=== PATIENT | female | born 1980 | race Caucasian/White ===

== ENCOUNTER 2021-12-25 20:00 | Outpatient (CLI) | payer OTHER, SELFPAY ==
--- OUTSIDE RECORDS SUMMARY | 2022-01-07 13:28 | XMS_ITS | Encounter Summary ---
:1980 Author Reason for Visit None recorded. Assessment and Plan Assessment Note 1. Biopsy-proven basal carcinoma right upper mucosal and cutaneous lip violating the vermilion border. See photographs. Verbally and with written informed cons ent we discussed the high risk of swelling bleeding and bruising. Pain discomfort, overall 98% potential long-term efficacy and scarring. The potential need for a wedge resection pending the size was ev en discussed preoperatively. Area cleansed with alcohol. Vermilion b order marked. Anesthetized with nerve block. 1% lidocaine with epinephrine however throughout the day Marcaine was used to maintain the anesthesia. Stage I: Curette debulking performed 1 to 1/2 mm margins were taken down to the muscularis revealing residual micronodular basal cell carcinoma and around the entire periphery. New paragraph we discuss ed this with the patient has been a more high risk basal cell. And the potential need for further layers over the day than expected. Stage II: Curette debulking performed 1 mm margins to 1-1/2 taken again. This revealed scattered smaller less de nse less populated micronodular islands from 10:00 skipping most of 6 7 and 8:00, and beginning at about 6:00 to 2:00. Stage III: Peripheral rim taken from 11 :00 to 1:00 through 6:00 with 1 to 2 mm margins revealing no residual basal carcinoma. Total stages 3, total sections 3 final defect 2.0 x 1.1 cm. Bilateral advancement flap and the form ation of a wedge resection was performed. Advanced medially with tapering on the medial inner aspect of the mucosal lip to contour appropriate taper. Vermilion libertad rders have been premarked and aligned wi th a mattress suture. Otherwise simple nylon sutures were used. The flap was 3 x 2 cm for total of 6 cm ? on the mucosal lip. Ice given, pressure dressing applied ty pewritten verbal wound care instructions given. Cell phone number given. Follow-up in 1 week in [place]. 1. Basal cell carcinoma of upper lip Discussion Note: None recorded.Patient educational handouts: No information available. Plan of Care Reminders Provider Appointments None recorded. ? ? Lab None recorded. ? ? Referral None recorded. ? ? Procedures None recorded. ? ? Surgeries None recorded. ? ? Imaging None recorded. ? ? Medications Name Start Date ? ? amoxicillin 875 mg-potassium clavulanate 125 mg tablet ? TAKE 1 TABLET BY MOUTH TWICE A DAY FOR 10 DAYS FOR SI NUS INFECTION atorvastatin 10 mg tablet ? TAKE 1 TABLET BY MOUTH DAILY AT BEDTIME ketorolac 10 mg tablet ? TAKE 1 TABLET BY MOUTH THREE TIMES A DAY NEEDED sertraline 100 mg tablet ? TAKE 1 TABLET BY MOUTH EVERY DAY Medications Administered None recorded. Vitals None recorded. Results Lab Results None recorded. Allergies None recorded. Problems None recorded. Procedures None recorded. Vaccine List None recorded. Social History None recorded. Functional Status Unknown. Past Encounters 11/16/2021 Basal Cell Carcinoma of Upper Lip Vj Harris MD: [address] [facility] [address], [facility] [[email or web address]] [address], [place] [address], Ph. History of Present Illness Note: <span>41 year-old female presents for the basal cell on her right upper cutaneous lip accompanied by her . He presents for the preoperative consultation and the informed consent. But doesnot present for most of the procedure..

known to me from [place].

No changes in her history.</span> Review of Systems ? Notes: <span>Review systems: patien t feels overall excellent health, weight stable, no issues with bleeding, jessie tting or healing. </span> Physical Exam ? Notes: <span>See photographs a 5 to 6 mm indurated poorly defined in some aspects macular plaque that crosses vermilion border on the right upper lateral cutaneous lip.</span>
--- OUTSIDE RECORDS SUMMARY | 2022-01-07 13:28 | XMS_ITS ---
:1980 Author Care Team Providers Name Role Phone Vj Harris Primary Care Provider Unavailable Allergies None recorded. Medications Name Status Start Date Stop Date ? ? amoxicillin 875 mg-potassium clavulanate 125 mg tablet Active ? Not available TAKE 1 TABLET BY MOUTH TWICE A DAY FOR 10 DAYS FOR SINUS INFECT ION atorvastatin 10 mg tablet Active ? Not av ailable ketorolac 10 mg tablet Active ? Not avail able TAKE 1 TABLET BY MOUTH THREE TIMES A DAY NEEDED sertraline 100 mg tablet Active ? Not christina ilable Problems None recorded. Procedures None recorded. Results Lab Results None recorded. Past Encounters 11/16/2021 Basal Cell Carcinoma of Upper Lip Vj Harris MD: [address], [facility] [address], [place] [address], Ph. Social History None recorded. Vaccine List None recorded. Plan of Care Reminders Provider Appointments None recorded. ? ? Lab None recorded. ? ? Referral None recorded. ? ? Procedures None recorded. ? ? Surgeries None recorded. ? ? Imaging None recorded. ? ? Vitals None recorded.
--- NOTE | 2022-01-12 13:14 | W.PM.SLEEP ---
Sleep Study Details Details Interpreting Provider: Luis Jc MD Date of Sleep Study: 12/31/21 Sleep Study Details: STUDY TYPE:? Home ? BMI:? 33 ORDERING PROVIDER:? Francisco INDICATION:? Concerns about sleep apnea ? SLEEP SUMMARY:? 425.6 monitored minutes RESPIRATORY SUMMARY:? AHI is 2.3 Low oxygen 88 Snoring 13.9% PERIODIC LIMB MOVEMENTS OF SLEEP:? Not recorded CARDIAC:? 54-99, mean 71.6 IMPRESSION:? This sleep study does not demonstrate clinically significant obstructive sleep apnea. Primary snoring is observed. If sleep disorder is strongly suspected then an in-lab sleep study followed by possibly an MSLT is recommended RECOMMENDATION: See above
--- OUTSIDE RECORDS SUMMARY | 2022-01-17 15:17 | XMS_ITS | Encounter Summary ---
[...] number given. Follow-up in 1 week in [place]. 1. Basal cell carcinoma of upper lip [...] Vj Harris MD: [address], [facility] [address], [place] [address], Ph. History of Present Illness Note: <span>41 year-old female presents for the basal cell on her right upper cutaneous lip accompanied by her . He presents for the preoperative consultation and the informed consent. But doesnot present for most of the procedure..

known to me from [place].

No changes in her history.</span> Review of [...]
--- OUTSIDE RECORDS SUMMARY | 2022-01-17 15:17 | XMS_ITS | Clinical Summary ---
:1980 Author Organization [facility] [place] [address] Care Team Providers Name Role Phone Sarai Macias Primary Care Provider Unavailable Allergies No known active allergies Medications Medication Sig Dispensed Refills Start Date End Date Status atorvastatin (LIPITOR) Take 10 mg by 0 11/30/2019 Active 10 mg tablet mouth at bedtime. sertraline (ZOLOFT) Take 100 mg by 0 01/28/2020 Active 100 mg tablet mouth once daily. valACYclovir (VALTREX) TAKE 2 TABLETS BY 0 0 Active 1 gram tablet MOUTH TWICE DAILY FOR 2 DAYS NEEDED Cetirizine (ZYRTEC) 10 Take by mouth. 0 Active mg cap amoxicillin (AMOXIL) Take 1 capsule by 30 capsule 0 02/22/2020 Active 500 mg mouth 3 times capsuleIndications: daily. Right otitis media, unspecified otitis media type Active Problems Not on file Social History Tobacco Use Types Packs/Day Years Used Date Never Smoker Smokeless Tobacco: Never Used Alcohol Use Standard Drinks/Week Comments Never 0 (1 standard drink = 0.6 oz pure alcoho l) Alcohol Habits Answer Date Recorded How often do you have a drink containing alcohol? Never 02/22/2020 How many drinks containing alcohol do you have on a typical Not asked day when you are drinking? How often do you have six or more drinks on one occasion? No t asked Comment: Not asked Sex Assigned at Date Recorded Not on file Obstetrics History Last Filed Vital Signs Vital Sign Reading Time Taken Comments Blood Pressure 126/87 07/23/2021 8:05 PM CDT Pulse 78 07/23/2021 8:05 PM CDT Temperature 36.6 ??C (97.9 ??F) 07/23/2021 4:03 PM CDT Respiratory Rate 18 07/23/2021 8:05 PM CDT Oxygen Saturation 98% 07/23/2021 8:05 PM CDT Inhaled Oxygen Concentration - - Weight 81.6 kg (180 lb) 07/23/2021 5:52 PM CDT Height 170.2 cm (5' 7) 07/23/2021 5:52 PM CDT Body Mass Index 28.19 07/23/2021 5:52 PM CDT Plan of Treatment Health Maintenance Due Date Last Done Comments Tdap 1992 Depression screening for age 12+ 1993 BMI (ht and wt on same day) for 07/06/1999 age 18+ Hepatitis C screening for age 0507/06/1999 18-79 Tetanus booster 2001 COVID-19 vaccine series (2 - 05/29/2020 05/01/2020 Moderna series) Pap test for age 21-65 03/08/2021 03/08/2018, 03/08/2018, 10/24/2013, Additional history exists Influenza for age 9-49 10/29/2021 Results Not on filefrom Last 3 Months Insurance Payer Benefit Plan / Subscriber ID Effective Dates Phone Addre ss Type Group [employer] [id number] 2017-[place] [address] [place] [address] [facility] [id number] 2017-[place] [address] [place] [address] Katey Orozco Personal/Famil Self [phone] (Home) [place] [phone] Sravani BARRON (Work) [id number] Care Teams Ui Developer Relationship Specialty Start Date End Date Sarai Macias PCP - General Obstetrics and Gynecology 05/22/12
--- OUTSIDE RECORDS SUMMARY | 2022-01-17 15:17 | XMS_ITS ---
[...] of Upper Lip Vj Harris MD: [address], [facility] [address], [place] [address], Ph. Social History None recorded. Vaccine List None recorded. Plan of Care Reminders Provider Appointments None recorded. ? ? Lab None recorded. ? ? Referral None recorded. ? ? Procedures None recorded. ? ? Surgeries None recorded. ? ? Imaging None recorded. ? ? Vitals None recorded.
== END 2021-12-25 20:01 | disposition home or self-care (01) ==
LOC: SLEEP 01-17 15:16
PROVIDERS: PCP Physician Assistant Medical; Visit Provider Otolaryngology
DX: R06.83 Snoring (principal); G47.19 Other hypersomnia
CPT/HCPCS: 95806

== ENCOUNTER 2022-04-07 07:34 | Outpatient (CLI) | payer OTHER, SELFPAY ==
--- NOTE | 2022-04-07 07:45 | CRLHL7_ITS ---
For Patients: As a result of the Century Cures Act, medical imaging exams and procedure reports are released immediately into your electronic medical record. You may view this report before your referring provider. If you have questions, please contact your health care provider. DIGITAL DIAGNOSTIC BILATERAL MAMMOGRAM USING TOMOSYNTHESIS AND COMPUTER-AIDED DETECTION RIGHT AXILLARY ULTRASOUND CLINICAL HISTORY: RIGHT axillary lump. COMPARISON: None. TECHNIQUE: Digital BILATERAL mammogram in six projections. Tomosynthesis and CAD utilized. Real-time ultrasound imaging of RIGHT axilla with imaging documentation. BREAST COMPOSITION: There are areas of scattered fibroglandular density. FINDINGS: 3D CC/MLO RIGHT breast mammogram images submitted. 2D CC/MLO BILATERAL mammograms submitted. Normal fibroglandular tissue is present bilaterally. No suspicious masses or architectural distortion. No adenopathy. Targeted RIGHT axillary ultrasound demonstrates a normal lymph node with central fatty hilum and thin hypoechoic cortex. No suspicious findings. IMPRESSION: Normal BILATERAL mammograms and normal RIGHT axillary lymph node. No findings concerning for malignancy. RECOMMENDATIONS: Annual BILATERAL screening mammography. Results and recommendations were discussed with the patient at the time of the exam. BI-RADS Category 2: Benign A lay language report of this examination will be provided to the patient. Dictated by Miles Carreon MD @ 04/07/2022 12:03:18 PM jj/Dictated by: Miles Carreon MD @ 04/07/2022 12:03:00 PM (Electronically Signed)
--- NOTE | 2022-04-07 08:15 | CRLHL7_ITS ---
For Patients: As a result of the Century Cures Act, medical imaging exams and procedure reports are released immediately into your electronic medical record. You may view this report before your referring provider. If you have questions, please contact your health care provider. INDICATION: Left ovarian cyst COMPARISON: 03/20/2018 TECHNIQUE: 2D cazares scale and color Doppler images were acquired of the pelvis using a transabdominal and transvaginal approach. FINDINGS: There is now a right sided intramural uterine fibroid measuring 3.4 x 2.3 x 3.1 cm. This may extend to the endometrial lining. Uterus measures 9.8 cm in length by 5.5 cm in AP diameter by 6.6 cm in transverse dimension. The endometrial lining appears normal and measures 5 mm in composite thickness. The right ovary measures 3.1 x 1.4 x 1.9 cm in size and the left ovary measures 3.9 x 1.8 x 3.5 cm. The ovaries demonstrate normal arterial and venous blood flow on color Doppler analysis. Hypoechoic left ovarian cyst is present measuring 2.3 x 2.1 x 2.6 cm. Trace physiologic free fluid. IMPRESSION: Right-sided uterine fibroid measuring 3.4 cm possibly extend into the endometrial lining. Hypoechoic left ovarian cyst measuring 2.6 cm. Dictated by Miles Carreon MD @ 04/07/2022 12:56:14 PM (Electronically Signed)
--- NOTE | 2022-04-07 09:15 | CRLHL7_ITS ---
For Patients: As a result of the Cures Act, medical imaging exams and procedure reports are released immediately into your electronic medical record. You may view this report before your referring provider. If you have questions, please contact your health care provider. PLEASE SEE DIGITAL DIAGNOSTIC BILATERAL MAMMOGRAM PERFORMED SAME DAY CRL:donna thompson/Dictated by: Miles Carreon MD @ 04/07/2022 12:03:00 PM (Electronically Signed)
== END 2022-04-07 07:35 | disposition home or self-care (01) ==
LOC: MAMMO 07:34
PROVIDERS: PCP Physician Assistant Medical; Visit Provider Physician Assistant Medical
DX: N83.202 Unspecified ovarian cyst, left side; D25.9 Leiomyoma of uterus, unspecified; R22.31 Localized swelling, mass and lump, right upper limb
CPT/HCPCS: 76830; 76856; 76882; 77066; G0279

== ENCOUNTER 2022-05-28 08:25 | Outpatient (CLI) | payer OTHER, SELFPAY | END 2022-05-28 08:26 | disposition home or self-care (01) | LOC: NFLDREF 13:31 | PROVIDERS: PCP Physician Assistant Medical; Referring Provider Physician Assistant Medical; Visit Provider Physician Assistant Medical | DX: N92.0 Excessive and frequent menstruation with regular cycle (principal); D25.0 Submucous leiomyoma of uterus; Z13.6 Encounter for screening for cardiovascular disorders | CPT/HCPCS: 80053; 80061; 84443 ==

== ENCOUNTER 2022-05-28 15:49 | Outpatient (CLI) | payer OTHER, SELFPAY ==
--- NOTE | 2022-05-28 15:00 | CRLHL7_ITS ---
For Patients: As a result of the Century Cures Act, medical imaging exams and procedure reports are released immediately into your electronic medical record. You may view this report before your referring provider. If you have questions, please contact your health care provider. CLINICAL HISTORY: FOLLOW UP LEFT OVARIAN CYST Comparison 04/07/2022 TECHNIQUE: 2D cazares scale ultrasound. In addition color Doppler and spectral Doppler analysis was performed of the pelvis using a transabdominal and transvaginal approach. FINDINGS: Right-sided fibroid within the uterine fundus extending to the endometrial stripe measures 3.2 x 2.1 x 2.4 cm. The endometrial lining measures 7 mm in thickness. The right ovary measures 3.4 x 1.5 x 2.1 cm in size and the left ovary measures 3.1 x 1.4 x 1.3 cm. The ovaries demonstrate normal arterial and venous blood flow on color Doppler and spectral Doppler analysis. Interval resolution of the previously noted hemorrhagic left ovarian cyst. A small hemorrhagic right ovarian cyst is present measuring 2.2 x 1.2 x 1.8 cm. There are no suspicious fluid collections within the cul-de-sac. IMPRESSION: Interval clearing of the previously noted hemorrhagic left ovarian cyst compared to the prior study. Similar appearance of the right-sided uterine fibroid extending to the endometrial stripe measuring 3.2 cm. Dictated by Miles Carreon MD @ 05/31/2022 9:03:43 AM (Electronically Signed)
== END 2022-05-28 15:50 | disposition home or self-care (01) ==
LOC: US 15:50
PROVIDERS: PCP Physician Assistant Medical; Visit Provider Obstetrics & Gynecology
DX: N83.202 Unspecified ovarian cyst, left side (principal); D25.9 Leiomyoma of uterus, unspecified
CPT/HCPCS: 76830; 93976

== ENCOUNTER 2022-06-10 15:27 | Emergency (ER) | payer OTHER, SELFPAY ==
[2022-06-10 15:33] VITALS: BP 130/94; PULSE 95; RESP 18; TEMP 36.8; O2SAT 95; BMI 33.3
[2022-06-10 16:51] VITALS: BP 122/82; PULSE 80; RESP 20; TEMP 36.6; O2SAT 98
--- NOTE | 2022-06-10 17:10 | ED.GENADULT ---
HPI - General Adult General Date Seen: 06/10/22 Chief complaint: Allergic Reaction Stated complaint: Gave self epipen ~1 hour ago Time Seen by Provider: 06/10/22 16:44 History of Present Illness HPI narrative: Patient is a 41-year-old female who was diagnosed yesterday with a tree nut allergy. Today she was eating some jelly beans and started to notice some itching in her throat and a feeling of tightness. No lip or tongue swelling. No wheezing. This was a similar feeling that she got in the die grinder's office yesterday when eating almond butter. She is given two doses of epinephrine yesterday as well as a dose of Benadryl. When today's episode began she took a dose of Benadryl and when her symptoms did not improve she took a dose of epinephrine. She presents about 1 hour later. Related Data Home Medications Medication Instructions Recorded Confirmed cetirizine 10 mg capsule (Zyrtec) 10 mg PO QDAY PRN 10/13/21 06/02/22 [place]-3 PO 04/05/22 06/02/22 epinephrine 0.3 mg/0.3 mL 0.3 mg IM ONCE 04/15/22 06/02/22 injection, auto-injector Previous Rx's Medication Instructions Recorded atorvastatin 10 mg tablet 10 mg PO QHS #90 tabs 04/05/22 sertraline 100 mg tablet 100 mg PO QDAY #90 tabs 04/05/22 tranexamic acid 650 mg tablet 650 mg PO TID excessive menstrual 06/02/22 bleeding #9 tabs epinephrine 0.3 mg/0.3 mL 0.3 mg (0.3 mL) IM Q5-15M PRN #2 ea 06/10/22 injection, auto-injector (EpiPen 2-Doug) Allergies Allergy/AdvReac Type Severity Reaction Status Date / Time house dust Allergy Verified 06/10/22 15:37 lactose AdvReac Intermediate Verified 06/10/22 15:37 Molds & Smuts Allergy Mild Congested Uncoded 06/02/22 14:51 nuts AdvReac Uncoded 06/02/22 14:51 Review of Systems Narrative: Review of systems is outlined above otherwise noted to be negative. She has been undergoing the evaluation for tree nut allergy for about the past two months. [facility] Medical History (Updated 06/10/22 @ 17:09 by Miles Patterson MD) Basal cell carcinoma (~10/2021) ?C44.91 - Basal cell carcinoma of skin, unspecified (ICD-10) Benign paroxysmal positional vertigo ?H81.10 - Benign paroxysmal vertigo, unspecified ear (ICD-10) History of bulimia ?Z86.59 - Personal history of other mental and behavioral disorders (ICD-10) Lump of skin of upper extremity ?R22.30 - Localized swelling, mass and lump, unspecified upper limb (ICD-10) Surgical History (Updated 04/13/22 @ 09:47 by Lyric Patel MD) History of arthroscopic knee surgery (12/11/08) ?Z98.890 - Other specified postprocedural states (ICD-10) History of section (10/24/12) ?Z98.891 - History of uterine scar from previous surgery (ICD-10) History of section (06/17/09) ?Z98.891 - History of uterine scar from previous surgery (ICD-10) History of endometrial ablation (05/02/18) ?Z98.890 - Other specified postprocedural states (ICD-10) History of hysteroscopy (01/08/15) ?Z98.890 - Other specified postprocedural states (ICD-10) History of hysteroscopy (09/20/11) ?Z98.890 - Other specified postprocedural states (ICD-10) History of sinus surgery (12/11/08) ?Z98.890 - Other specified postprocedural states (ICD-10) Hx of nasal septoplasty (09/07/19) ?Z98.890 - Other specified postprocedural states (ICD-10) Family History (Updated 04/13/22 @ 11:28 by Lyric Patel MD) Father Alcoholism Heart disease Hyperlipidemia Colon cancer High blood pressure Maternal Grandmother Cervical cancer Mother High blood pressure Paternal Grandmother Ovarian cancer Social History (Updated 04/13/22 @ 11:29 by Lyric Patel MD) 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 , 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 nonsmoker Highest level of school completed/degree received: Master's degree Smoking Status: Never smoker How often do you have a drink containing alcohol: never AUDIT-C Alcohol total score: 0 Non-prescribed substance use: denies use Are you now , , , , never or living with a partner: Social isolation score (0-1 are the most socially isolated patients): 1 Little interest or pleasure in doing things: not at all Feeling down, depressed, or hopeless: several days Do you think of yourself as: straight/heterosexual Gender Identity: female Are you currently sexually active: Yes In the past 12 months, how many sex partners have you had: one Are you using contraception or practicing any form of control: Yes (Partner vasectomy) Exam Narrative: Exam Narrative: Vitals noted. No audible wheezing. HEENT: Conjunctiva clear. Tympanic membranes are pearly white bilaterally. Posterior pharynx is clear without erythema or exudate. No lip or tongue swelling. Neck is supple without adenopathy. Lungs: Clear to auscultation in all kenny. No wheezes, rales, rhonchi. Good air movement. Heart: Regular rate and rhythm without murmur. Abdomen: Soft and nontender. No guarding, rigidity, rebound. Bowel sounds are normal. No palpable masses. Extremities: No cyanosis or edema. Good distal pulses. Skin: No abnormalities noted of the exposed skin. No hives. Neurologic: Awake, alert, fully oriented. Neurologic exam is nonfocal. Const: Vital Signs, click to edit/add: Vital Signs - 24 hr 06/10/22 15:33 06/10/22 16:51 Temperature 98.2 F 97.8 F Pulse Rate [Right Pulse Oximeter] 95 80 Respiratory Rate 18 20 Blood Pressure [Ri ght Upper Arm] 130/94 H 122/82 Pulse Oximetry 95 98 Oxygen Delivery Me thod Room Air Room Air Course Course Hospital Course: Patient was seen and examined. She is currently asymptomatic. No diagnostic evaluation is necessary. She will discharge home. Her is present. She can take another dose of Benadryl at bedtime and I have refilled her epinephrine as needed. Vital Signs Vital signs: Initial Vital Signs Respiratory Effort Normal 06/10/22 15:27 Respiratory Depth Normal 06/10/22 15:27 Respiratory Pattern Normal 06/10/22 15:27 Vital Signs Temperature 98.2 F 06/10/22 15:33 Pulse Rate 95 06/10/22 15:33 Respiratory Rate 18 06/10/22 15:33 Blood Pressure 130/94 H 06/10/22 15:33 Pulse Oximetry 95 06/10/22 15:33 Oxygen Delivery Method Room Air 06/10/22 15:33 Temperature 97.8 F 06/10/22 16:51 Pulse Rate 80 06/10/22 16:51 Respiratory Rate 20 06/10/22 16:51 Blood Pressure 122/82 06/10/22 16:51 Pulse Oximetry 98 06/10/22 16:51 Oxygen Delivery Method Room Air 06/10/22 16:51 Discharge Plan Discharge Clinical Impression: Allergic reaction to tree nut Patient Disposition: Home, Self-Care Condition: Stable Instructions: Food Allergy (ED) Additional Instructions: Take 50 mg of thumb Benadryl before bed. Continue Zyrtec 10 mg daily. I have refilled your EpiPen. If you have recurrent symptoms please fill the prescription for prednisone. Activity Level: No Restrictions Discharge Diet: Regular Prescriptions: New epinephrine [EpiPen 2-Doug] 0.3 mg/0.3 mL auto-injector 0.3 mg IM Q5-15M PRNQty: 2 5RF Rx Instructions: do not exceed 3 doses per episode No Action tranexamic acid 650 mg tablet 650 mg PO TID Qty: 9 0RF Zyrtec 10 mg capsule 10 mg PO QDAY PRN [place]-3 PO sertraline 100 mg tablet 100 mg PO QDAY Qty: 90 3RF atorvastatin 10 mg tablet 10 mg PO QHS Qty: 90 3RF epinephrine 0.3 mg/0.3 mL auto-injector 0.3 mg IM ONCE Rx Instructions: as a single dose; may repeat once Follow Up/Referrals: Imelda Tripp PA-C [Primary Care Provider] - Stand Alone Forms: MyHealth Info Instructions
== END 2022-06-10 17:20 | disposition home or self-care (01) ==
LOC: ED 17:15
PROVIDERS: Emergency Provider Family Medicine; PCP Physician Assistant Medical
DX: T78.05XA Anaphylactic reaction due to tree nuts and seeds, initial encounter (principal)
CPT/HCPCS: 99282; 99283

== ENCOUNTER 2022-06-30 17:17 | Outpatient (CLI) | payer OTHER, SELFPAY | END 2022-06-30 17:18 | disposition home or self-care (01) | PROVIDERS: PCP Physician Assistant Medical; Visit Provider Physician Assistant Medical | DX: Z01.818 Encounter for other preprocedural examination (principal); R79.89 Other specified abnormal findings of blood chemistry | CPT/HCPCS: 80076; 86703; 86803 ==

== ENCOUNTER 2023-06-20 13:01 | Outpatient (CLI) | payer OTHER, SELFPAY ==
[2023-06-20 23:30] LABS: Chlamydia DNA Amplified* NOT DETECTED (No Detected); GC DNA Amplified* NOT DETECTED (No Detected)
== END 2023-06-20 13:02 | disposition home or self-care (01) ==
PROVIDERS: PCP Physician Assistant Medical; Visit Provider Physician Assistant Medical
DX: G25.81 Restless legs syndrome (principal); Z13.29 Encounter for screening for other suspected endocrine disorder; Z11.3 Encounter for screening for infections with a predominantly sexual mode of transmission; E78.2 Mixed hyperlipidemia; N92.0 Excessive and frequent menstruation with regular cycle
CPT/HCPCS: 80053; 80061; 82728; 84443; 87491; 87591

== ENCOUNTER 2023-09-28 09:34 | Outpatient (CLI) | payer OTHER, SELFPAY ==
--- OUTSIDE RECORDS SUMMARY | 2023-09-28 09:38 | XMS_ITS | Clinical Summary ---
Author Organization [facility] Address [place], [place] [address] Care Team Providers Care Boat Assembler Name Role Phone Sarai Macias Primary Care Provider Unavail able Allergies No known active allergies Medications Medication Sig Dispensed Refills Start Date End Date Status atorvastatin (LIPITOR) 10 mg tablet Take 10 mg by mouth at bedtime. 11/30/2019 Active sertraline (ZOLOFT) 100 mg tablet Take 100 mg by mouth once daily. 01/28/2020 Active valACYclovir (VALTREX) 1 gram tablet TAKE 2 TABLETS BY MOUTH TWICE DAILY FOR 2 DAYS NEEDED 08/03/2019 Active Cetirizine (ZYRTEC) 10 mg cap Take by mouth. Active amoxicillin (AMOXIL) 500 mg capsuleIndications :Right otitis media, unspecified otitis media type Take 1 capsule by mouth 3 times daily. 30 capsule 02/22/2020 09/22/2023 Discontinued (*Med complete/Reg imen complete/Lev el of care change) Encounters Date Type Department Care Team Description 09/22/2023 9:30 AM CDT Office Visit [facility] [address] [place] [address] Lázaro Serna MD CV General Cardiology New 09/21/2023 Travel 09/05/2023 Telephone [facility] [address] [facility] [address] [place] [address] Margo Degroot NP 08/19/2023 8:15 AM CDT Ancillary Procedure [facility] [address] [place] [address] 08/19/2023 Travel from Last 3 Months Social History Tobacco Use Types Packs/Day Years Used Date Smoking Tobacco: Never Smokeless Tobacco: Never Alcohol Use Standard Drinks/Week Comments Never 0 (1 standard drink = 0.6 oz pur e alcohol) Social Connections Answer Date Recorded Frequency of Communication with Friends and Fami ly Not on file 09/22/2023 Sex and Gender Information Value Date Recorded Sex Assigned at Not on file Gender Identity Not on file Sexual Orientation Not on file Obstetrics History Last Filed Vital Signs Vital Sign Reading Time Taken Comments Blood Pressure 126/87 07/23/2021 8:05 PM CDT Pulse 78 07/23/2021 8:05 PM CDT Temperature 36.6 ??C (97.9 ??F) 07/23/2021 4:03 PM CD T Respiratory Rate 18 07/23/2021 8:05 PM CDT Oxygen Saturation 98% 07/23/2021 8:05 PM CDT Inhaled Oxygen Concentration - - Weight 81.6 kg (180 lb) 07/23/2021 5:52 PM CDT Height 170.2 cm (5' 7) 07/23/2021 5:52 PM CDT Body Mass Index 28.19 07/23/2021 5:52 PM CDT Plan of Treatment Upcoming Encounters Date Type Department Care Team (Late st Contact Info) Description 11/07/2023 8:30 AM CDT Orders Only [facility] [address] [place] [address] Lab, [place] 11/24/2023 2:00 PM CDT Office Visit [address] [place] [address] Amarjit Marshall MD [address] [facility] [address] [place] [address] 11/24/2023 3:00 PM CDT Office Visit [address] [place] [address] Keren Banda, TEACHER AIDE [address] [facility] [address] [place] [address] Health Maintenance Due Date Last Done Comments Tdap 1992 Depression screening for age 12+ 1993 HIV for age 15-65 1996 BMI (ht and wt on same day) for age 18+ 07/06/1999 Hepatitis C screening for age 18-79 07/06/1999 Tetanus booster 2001 COVID-19 vaccine series (3 - 2022-24 season) 2022 01/08/2022, 05/01/2020 Influenza for age 9-49 10/30/2023 Pap test for age 21-65 06/19/2026 , 06/20/2023, 03/08/2018, Additional history exists Pneumococcal series for age 6-64 Aged Out No longer eligible based on patient's age to complete this topic Procedures Procedure Name Priority Date/Time Associated Diagnosis Comments CT CARDIAC CALCIUM SCORE ONLY WO SINGLE READ Routine 08/19/2023 8:46 AM CDT Screening for cardiovascular condition HPV THIN PREP Routine 06/20/2023 1:30 PM CDT from Last 3 Months or Most Recently Relevant to Health Maintenance Results * CT CARDIAC CALCIUM SCORE ONLY WO SINGLE READ (08/19/2023 8:46 AM CDT) Anatomical Region Laterality Modality Computed Tomogra phy Narrative 08/19/2023 6:55 PM CDT For Patients: As a result of the Century Cures Act, medical imaging exams and procedure reports are released immediately into your electronic medical record. ??You may view this report before your referring provider. ?? If you have questions, please contact your health care provider. CT CARDIAC CALCIUM SCORING, 08/19/2023 PATIENT HISTORY: ??Screening for cardiovascular condition. ?? REPORT: High-resolution, ECG-synchronized non-contrast computed tomography of the heart with attention to the coronary arteries was performed. Coronary calcification analyzed using Siemens calcium scoring software. These are the results of the evaluation. CT Calcium Scoring: This cardiac CT examination will provide you with a coronary artery calcium score. A coronary artery calcium score is a measurement of the amount of calcified plaque in the coronary arteries, the arteries that supply blood to the heart muscle. The coronary artery calcium score is calculated based on the number, size, and density of the calcified plaques in the coronary arteries. The amount of calcified coronary plaque has been shown to directly correlate with future risk for heart disease. The coronary artery calcium is a marker of how much plaque has accumulated in the alegre of the coronary arteries. It is not a test for blockages. This test is intended to assess cardiovascular risk in patients without symptoms. It is not intended to be a test for individuals with chest pain or other possible symptoms suggestive of heart disease. If you are having chest pain or other potential cardiovascular symptoms, see your physician. Calcium Score: Left main = 0 Left anterior descending = 7 Left circumflex = 0 Right coronary artery = 0 Total calcium score = 7 Calcium score percentile: Out of range for % scoring. Calcified Plaque Seen Assessment: ? ? Your cardiac CT examination demonstrates plaque in the coronary arteries. ? ? The amount of plaque in the coronary arteries directly correlates with the risk for heart attack and other coronary events (such as bypass or stenting). ? ? As discussed above, the coronary artery calcium score is intended for risk assessment in patients without cardiovascular symptoms. If you are having chest pain or other potential cardiovascular symptoms, see your physician. Recommendations: ? ? To lower your cardiovascular risk, we strongly recommend adherence to healthy lifestyle behaviors including: ?Following a heart healthy diet focused on modest portion sizes, a high intake of fresh fruits and vegetables, whole grains, healthy fats (olive oil, nuts and seeds, avocados), and healthy proteins (unprocessed meats, fish, legumes). ? Following an active lifestyle including 30-45 minutes of moderate intensity exercise 5-6 times per week. ?Avoidance of tobacco products. ? ? Cardiovascular preventive medication, including a daily aspirin and cholesterol-lowering statin medications have been shown to reduce the risk of a future heart attack and stroke, especially in individuals at higher risk for heart disease. ? ? We recommend that individuals with calcified plaque discuss the risks and benefits of cholesterol-lowering medications, blood pressure medications, and aspirin with their primary care physician. Cholesterol-lowering medications have been shown to reduce the risk of heart attack in individuals at elevated risk, including in patients with ? normal? cholesterol levels at baseline. ? ? A coronary artery calcium score is not a test for blockages, it is a test for underlying plaque. An elevated calcium score is not an indication for additional testing for coronary heart disease though one may be considered based on your clinical history. The results of your coronary artery calcium score should be reviewed by your primary care provider or civil engineering designer. ? ? These recommendations are generalized and may not specifically apply to you as an individual. Your primary care physician is in the best position to provide advice on your care and clinical decisions should ultimately be made by you and your physician. EXTRACARDIAC STRUCTURES: ??There are no acute or suspicious extracardiac imaging abnormalities. Please note that all CT scans at this facility use dose modulation, iterative reconstruction and/or weight-based dosing when appropriate to reduce radiation dose to as low as reasonably achievable. ?? Lul Bass M.D. Pediatric/Diagnostic Radiologist Cardiothoracic Imaging [email or web address]/sp / ?? Referral Self CT * HPV HIGH RISK (06/20/2023 1:30 PM CDT) TYPE 16 Negative Negative 06/22/2023 5:04 PM CDT [facility] [address] [facility] TYPE 18 Negative Negative 06/22/2023 5:04 PM CDT [facility] [address] [facility] OTHER HIGH RISK TYPES Negative Negative 06/22/2023 5:04 PM CDT [facility] [address] [facility] Other (Cervical) 06/20/2023 1:30 PM CDT 06/21/2023 10:09 AM CDT Narrative [facility] [address] [facility] - 06/22/2023 5:04 PM CDT HPV types 16, 18, 31, 33, 35, 39, 45, 51, 52, 56, 58, 59, 66 and 68 DNA were undetectable or below the pre-set threshold. Methodology: Vindicia Ak[address]ah [address]00 HPV Test Imelda Tripp PA-C MICROBIOLOGY [facility] [address] [facility] [address] [place] [address], from Last 3 Months or Most Recently Relevant to Health Maintenance Care Teams Boat Assembler Relationship Specialty Start Date End Date Sarai Macias PCP - General Obstetrics and Gynecology 05/22/12
--- OUTSIDE RECORDS SUMMARY | 2023-09-28 09:38 | XMS_ITS | Referral Summary ---
Author Organization [facility] Address [address] [place] [id number] Care Team Providers Care Audit Consultant Name Role Phone Imelda Tripp PA-C Primary Care Provider Allergies Active Allergy Reactions Criticality Noted Date Comments Food 04/14/2022 Blueberries Medications Medication Sig Dispensed Refills Start Date End Date Status Cetirizine HCl (ZYRTEC PO) Take by mouth daily. Act venita sertraline (ZOLOFT) 100 MG tablet Take by mouth daily. A ctive Vit-Fe Sulfate-FA ( VITAMIN OR) Take by mouth. Active Docosahexaenoic Acid (DHA OMEGA 3 PO) Take by mouth. Acti ve guaiFENesin-codeine (ROBITUSSIN AC) 100-10 MG/5ML SOLNIndications:URI (upper respiratory infection) Take 5-10 mLs by mouth every 4 hours as needed for cough 120 mL 0 02/12/2014 Active EPINEPHrine (ANY BX GENERIC EQUIV) 0.3 MG/0.3ML injection 2-pack Inject 0.3 mLs (0.3 mg) into the muscle as needed for anaphylaxis May repeat one time in 5-15 minutes if response to initial dose is inadequate. 2 each 04/14/2022 Active Active Problems Problem Noted Date Diagnosed Date Female infertility 01/14/2012 Overview: Problem list name updated by automated process. Provider to review Lumbago 07/02/2008 Nonallopathic lesion of lumbar region 07/02/2008 Overview: Problem list name updated by automated process. Provider to review Pain in thoracic spine 09/12/2007 Shoulder blade pain 09/12/2007 Muscle spasm of back 09/12/2007 Pain in joint, pelvic region and thigh 8 Nonallopathic lesion of thoracic region 06/17/19 07 Overview: Problem list name updated by automated process. Provider to review Nonallopathic lesion of lower extremities 2006 Overview: Problem list name updated by automated process. Provider to review Resolved Problems Problem Noted Date Diagnosed Date Resolved Date Lumbago 06/16/2006 09/12/2007 Nonallopathic lesion of lumbar region 06/16/2006 09/12/2007 Overview: Problem list name updated by automated process. Provider to review Nonallopathic lesion of sacral region 06/16/2006 09/12/2007 Overview: Problem list name updated by automated process. Provider to review Sprain of sacrotuberous ligament 01/06/2005 06/16/2006 Overview: Problem list name updated by automated process. Provider to review Nonallopathic lesion of sacral region 01/06/2005 06/16/2006 Overview: Problem list name updated by automated process. Provider to review Social History Tobacco Use Types Packs/Day Years Used Date Smoking Tobacco: Never Smokeless Tobacco: Never Alcohol Use Standard Drinks/Week Comments No 0.8 (1 standard drink = 0.6 oz p ure alcohol) Adolescent Education Answer Date Record ed Getting School Help Needed Not on file 12/12 Sex and Gender Information Value Date Recorded Sex Assigned at Not on file Gender Identity Not on file Sexual Orientation Not on file Last Filed Vital Signs Vital Sign Reading Time Taken Comments Blood Pressure 126/73 04/14/2022 4:15 PM INSTRUCTOR EXTENSION WORK Pulse 99 04/14/2022 4:15 PM INSTRUCTOR EXTENSION WORK Temperature 36.8 ??C (98.3 ??F) 04/14/2022 2:35 PM CS T Respiratory Rate 18 04/14/2022 4:15 PM INSTRUCTOR EXTENSION WORK Oxygen Saturation 98% 04/14/2022 4:15 PM INSTRUCTOR EXTENSION WORK Inhaled Oxygen Concentration - - Weight 73.3 kg (161 lb 9.6 oz) 02/12/2014 5:30 P M INSTRUCTOR EXTENSION WORK Height 163.2 cm (5' 4.25) 03/10/2012 8:25 AM CS T Body Mass Index 27.52 03/10/2012 8:25 AM INSTRUCTOR EXTENSION WORK Plan of Treatment Not on file Care Teams Audit Consultant Relationship Specialty Start Date End Date Imelda Tripp PA-C [facility] [address] [place] [address] PCP - General Physician Claims Support Specialist 04/14/22
--- OUTSIDE RECORDS SUMMARY | 2023-09-28 09:38 | XMS_ITS | Clinical Summary ---
Author Organization [facility] Address [address] [place] [address] Care Team Providers Care Pediatric Clinical Dietician Name Role Phone Imelda Tripp PA-C Primary [...] updated by automated process. Provider to review Family History Medical History Relation Comments Cardiovascular Father Hypertension Father Cancer Paternal Grandmother Uterine Relation Status Comments Father Paternal Grandmother Social History Tobacco Use Types Packs/Day Years [...] Comments Blood Pressure 126/73 04/14/2022 4:15 PM PARTS LISTER Pulse 99 04/14/2022 4:15 PM PARTS LISTER Temperature 36.8 ??C (98.3 ??F) 04/14/2022 2:35 PM CS T Respiratory Rate 18 04/14/2022 4:15 PM PARTS LISTER Oxygen Saturation 98% 04/14/2022 4:15 PM PARTS LISTER Inhaled Oxygen Concentration - - Weight 73.3 kg (161 lb 9.6 oz) 02/12/2014 5:30 P M PARTS LISTER Height 163.2 cm (5' 4.25) 03/10/2012 8:25 AM CS T Body Mass Index 27.52 03/10/2012 8:25 AM PARTS LISTER Plan of Treatment Health Maintenance Due Date Last Done Comments ADVANCE CARE PLANNING 1981 ANNUAL REVIEW OF HM ORDERS 1981 GLUCOSE 1981 MAMMO SCREENING 1981 YEARLY PREVENTIVE VISIT 1981 HIV SCREENING 1996 HEPATITIS C SCREENING 07/06/1999 HEPATITIS B IMMUNIZATION (1 of 3 - 19+ 3-dose series) 2000 PAP 2002 LIPID 2021 COVID-19 Vaccine ( season) 2022 01/08/2022, 12/22/2020, 05/01/2020, Additional history exists PHQ-2 (once per calendar year) 2023 INFLUENZA VACCINE (#1) 2023 , 10/30/2021, 10/26/2020, Additional history exists DTAP/TDAP/TD IMMUNIZATION (4 - Td or Tdap) 01/02/2031 01/02/2021, 08/20/2009, 06/28/2001 HPV IMMUNIZATION Aged Out No longer e ligible based on patient's age to complete this topic IPV IMMUNIZATION Aged Out No longer e ligible based on patient's age to complete this topic MENINGITIS IMMUNIZATION Aged Out No l onger eligible based on patient's age to complete this topic Pneumococcal Vaccine: Pediatrics (0 to 5 Years) and At-Risk Patients (6 to 64 Years) Aged Out No longer eligible based on patient's age to complete this topic RSV MONOCLONAL ANTIBODY Aged Out No l onger eligible based on patient's age to complete this topic Care Teams Pediatric Clinical Dietician Relationship Specialty Start Date End Date Imelda Tripp PA-C [facility] [address] [place] [address] PCP - General Physician Ribbon Cutter 04/14/22
--- NOTE | 2023-09-28 09:45 | CRLHL7_ITS ---
For Patients: As a result of the Century Cures Act, medical imaging exams and procedure reports are released immediately into your electronic medical record. You may view this report before your referring provider. If you have questions, please contact your health care provider. BILATERAL SCREENING MAMMOGRAM WITH COMPUTER-AIDED DETECTION AND TOMOSYNTHESIS TECHNIQUE: CC and MLO views were obtained. These mammographic images have been obtained using full-field digital technique. These mammographic images were interpreted with the benefit of computer-aided detection. Breast Tomosynthesis was used in this interpretation. COMPARISON FILM: 04/07/22. FINDINGS: There are scattered areas of fibroglandular density. IMPRESSION: There is no radiographic evidence for malignancy. ASSESSMENT: BI-RADS Category 1: Negative RECOMMENDATION: Routine screening mammogram in 1 year. A lay language report of this examination will be provided to the patient. Miles Carreon M.D. Diagnostic Radiologist [email or web address] SP/Dictated by: Miles Carreon MD @ 09/29/2023 11:13:00 AM (Electronically Signed)
== END 2023-09-28 09:35 | disposition home or self-care (01) ==
PROVIDERS: PCP Physician Assistant Medical; Visit Provider Physician Assistant Medical
DX: Z12.31 Encounter for screening mammogram for malignant neoplasm of breast (principal)
CPT/HCPCS: 77063; 77067

== ENCOUNTER 2024-08-06 13:20 | Outpatient (CLI) | payer OTHER, SELFPAY | END 2024-08-06 13:21 | disposition home or self-care (01) | PROVIDERS: PCP Physician Assistant Medical; Visit Provider Physician Assistant Medical | DX: Z00.00 Encounter for general adult medical examination without abnormal findings (principal); E78.5 Hyperlipidemia, unspecified; F41.8 Other specified anxiety disorders; Z79.899 Other long term (current) drug therapy | CPT/HCPCS: 80053; 82306; 84443 ==

== ENCOUNTER 2024-08-11 11:00 | Emergency (ER) | payer OTHER, SELFPAY ==
--- OUTSIDE RECORDS SUMMARY | 2016-04-13 09:50 | XMS_ITS | Continuity of Care Document ---
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 Name Role Phone Pablito Grimm MD Unavailable Unavailable Allergies, Adverse Reactions, Alerts Substance Reaction Status Criticality No Known Allergies Active No Inform ation Medications Medication Instructions Dosage Effective Dates (start - stop) Status Comments Zyrtec 10 mg tablet take 1 tablet by oral route every day as needed 10 MG - Active Zoloft 100 mg tablet take 1.5 tablet by oral route every day 150 MG - Active PEPCID (unknown strength) take 1 tablet by oral route every day Not Available - Active Procedures Procedure Date Ugi Endo; W/bx 1/mx Level Iv-surg Path Gross/micro 17 Offic/outpt E&m New Mod Sever 7 Advance Directives Directive Yes / No Effective Date File Name No Information Encounters Encounter Description Practice Location Reason(s) For Visit Diagnoses Date Provider Providers Copied on Encounter [facility], [address] [address], [place], [place], [id number], [place] tel:[phone] [facility] No Information 7 Link MD Kenney. [address] [facility], [facility] [address], [place], [place], [id number], [place]. tel:[phone] [facility], [address] [address], [place], [place], [id number], [place] tel:[phone] [facility] GastropathyUns pecified abdominal pain Anne Marie Ball. [address] [facility], [address], [place], [place], [address], [place]. tel:[phone] Referring Provider: Liya Toro MD S, [address] [place], [address]. tel:[phone] Offic/outpt E&m [facility], [address] [address], [place], [place], [id number], tel:[phone] [facility] GI Symptoms or Concerns (chief complaint) Epigastric abdominal painDietary counseling and surveillance No Information Referring Provider: Cinthya Martinez MD E, [address] [place], [address]. tel:[phone] Family History Family Member Type Diagnosis Age At Onset Father Problem (finding) alcoholism Father Problem (finding) cancer of colon Son Problem (finding) Alive and well Mother Problem (finding) Alive and well Father Problem (finding) Father Problem (finding) Colon polyps Father Problem (finding) asthma Immunizations Vaccine Date Status Comments Influenza, injectable, quadr ivalent, preservative free, 3 yrs or older administered Source : Other Provider Payers Payer name Insurance type Covered democrat ID Messi maurer(s) [employer] Data CI [id number] Social History Type Description Quantity Date Captured Comments Sex Female Smoking Status No Information Chief Complaint And Reason For Visit No Information Reason For Referral Reason For Referral No Information Plan Of Treatment Date Type Action Status Goal Lifestyle education regardin g diet completed History Of Present Illness Encounter Date Complaint History Of Prese nt Illness GI Symptoms or Concerns This pat laron is a 35-year-old female who was seen today because of abdominal pain and question about this being related to ulcer. The patient notes that about five years ago she was evaluated in [place], [place] because of similar abdominal pain. She apparently had some blood tests and x-ray, but no endoscopy. She was given a diagnosis of ulcer" and was treated with Pepcid daily for two months. Symptoms abated. Since then, the patient recalls that she would have an episode of similar abdominal pain about every couple of months. She would then take Pepcid for a brief period of time to relieve the discomfort. In the last year, however, she has been using Pepcid regularly on a daily basis.In the last six days, the patient has had persistent epigastric pain. This is longer duration in the past. The patient has been seen by an compressor station chief engineer, who recommended the Pepcid daily about a year ago. Because of the persistent pain in the last several days, gastrointestinal evalua Functional Status Date Functional Assessmen t No Information Instructions Date Instruction Additional Infor adeela NSAIDS List Related to Gastr opathy 1. As requested, we will schedule patient for upper endoscopy, which will include gastric and for completeness, duodenal biopsies. I have reviewed the procedure with the patient who understands and consents.2. Further comment and recommendations to follow depending on outcome of the above. If endoscopy and biopsies are nondiagnostic, we will have to decide if further evaluation is warranted.The above was discussed in detail today with the patient. She indicated her current questions and concerns have been satisfactorily addressed. Related to Epigastric abdominal pain Lifestyle education regarding di et Related to Dietary counseling and surveillance Abdominal Pain Related to Epiga stric abdominal pain Assessments Type Assessment Date No Information Patient Care Teams Name Effective Dates (start - stop) Status Members No Information
--- OUTSIDE RECORDS SUMMARY | 2016-04-13 09:50 | XMS_ITS | Continuity of Care Document ---
Author Organization [facility] Address [address] [address] [place] [address] Phone Care Team Providers Care List Of First Job Ideas Name Role Phone Pablito Grimm MD Unavailable [...] Diagnoses Date Provider Providers Copied on Encounter [facility], [address] [address], [place], [place], [address], [place] tel:[phone] [facility] No Information 7 Link MD Kenney. [address] [facility], [facility] [address], [place], [place], [id number], [place]. tel:[phone] [facility], [address] [address], [place], [place], [address], [place] tel:[phone] [facility] GastropathyUns pecified abdominal pain Anne Marie Ball. [address] [facility], [address], [place], [place], [address], [place]. tel:[phone] Referring Provider: Liya Toro MD S, [address] [place], [address]. tel:[phone] Offic/outpt E&m [facility], [address] [address], [place], [place], [address], tel:[phone] [facility] GI Symptoms or Concerns (chief complaint) Epigastric abdominal painDietary counseling and surveillance No Information Referring Provider: Cinthya Martinez MD E, [address] [place], [address]. tel:[phone] Family History Family Member Type Diagnosis Age [...] Provider Payers Payer name Insurance type Covered republican ID Messi maurer(s) HealthPart[employer] CI [id number] Social History Type Description Quantity Date Captured [...] five years ago she was evaluated in [place], [place] because of similar abdominal pain. She [...] The patient has been seen by an riveter helper, who recommended the Pepcid daily about a [...]
--- OUTSIDE RECORDS SUMMARY | 2024-08-11 11:02 | XMS_ITS | Clinical Summary ---
Author Organization [facility] Address [address] [place] [id number] Care Team Providers Care Administrative Resident Name Role Phone Imelda Tripp PA-C Primary Care Provider Allergies Active Allergy Reactions Criticality Noted Date Comments Food 04/14/2022 Blueberries Medications Cetirizine HCl (ZYRTEC PO) Take by mouth daily. Active sertraline (ZOLOFT) 100 MG tablet Take by mouth daily. Active Vit-Fe Sulfate-FA ( VITAMIN OR) Take by mouth. Act venita Docosahexaenoic Acid (DHA OMEGA 3 PO) Take by mouth. Activ e guaiFENesin-code ine (ROBITUSSIN AC) 100-10 MG/5ML SOLNIndications: URI (upper respiratory infection) Take 5-10 mLs by mouth every 4 hours as needed for cough 120 mL 0 4 Active EPINEPHrine (ANY BX GENERIC EQUIV) 0.3 MG/0.3ML injection 2-pack Inject 0.3 mLs (0.3 mg) into the muscle as needed for anaphylaxis May repeat one time in 5-15 minutes if response to initial dose is inadequate. 2 each 3 Active Active Problems Problem Noted Date Diagnosed Date Female infertility 01/14/2012 Overview (11/29/2014): Problem list name updated by automated process. Provider to review Lumbago 07/02/2008 Nonallopathic lesion of lumbar region 07/02/2008 Overview (11/29/2014): Problem list name updated by automated process. Provider to review Pain in thoracic spine 09/12/2007 Shoulder blade pain 09/12/2007 Muscle spasm of back 09/12/2007 Pain in joint, pelvic region and thigh 8 Nonallopathic lesion of thoracic region 06/17/19 07 Overview (11/28/2014): Problem list name updated by automated process. Provider to review Nonallopathic lesion of lower extremities 2006 Overview (11/28/2014): Problem list name updated by automated process. Provider to review Resolved Problems Problem Noted Date Diagnosed Date Resolved Date Lumbago 06/16/2006 09/12/2007 Nonallopathic lesion of lumbar region 06/16/2006 09/12/2007 Overview (11/28/2014): Problem list name updated by automated process. Provider to review Nonallopathic lesion of sacral region 06/16/2006 09/12/2007 Overview (11/28/2014): Problem list name updated by automated process. Provider to review Sprain of sacrotuberous ligament 01/06/2005 06/16/2006 Overview (11/28/2014): Problem list name updated by automated process. Provider to review Nonallopathic lesion of sacral region 01/06/2005 06/16/2006 Overview (11/28/2014): Problem list name updated by automated process. [...] School Help Needed Not on file 12/12 Comments No Sex and Gender Information Value Date Recorded Sex Assigned at Not on file Legal Sex Female 3:25 AM GO GO DANCER Gender Identity Not on file Sexual Orientation Not on file Last Filed Vital Signs Vital Sign Reading Time Taken Comments Blood Pressure 126/73 04/14/2022 4:15 PM GO GO DANCER Pulse 99 04/14/2022 4:15 PM GO GO DANCER Temperature 36.8 C (98.3 F) 04/14/2022 2:35 PM GO GO DANCER Respiratory Rate 18 04/14/2022 4:15 PM GO GO DANCER Oxygen Saturation 98% 04/14/2022 4:15 PM GO GO DANCER Inhaled Oxygen Concentration - - Weight 73.3 kg (161 lb 9.6 oz) 02/12/2014 5:30 P M GO GO DANCER Height 163.2 cm (5' 4.25) 03/10/2012 8:25 AM CS T Body Mass Index 27.52 03/10/2012 8:25 AM GO GO DANCER Plan of Treatment Health Maintenance Due Date Last Done Comments ADVANCE CARE PLANNING 1981 ANNUAL REVIEW OF HM ORDERS 1981 DIABETES SCREENING 1981 MAMMO SCREENING 1981 YEARLY PREVENTIVE VISIT 1984 HIV SCREENING 1996 HEPATITIS C SCREENING 07/06/1999 HEPATITIS B VACCINE (1 of 3 - 19+ 3-dose series) 2000 LIPID 2021 COVID-19 VACCINE (2023- season) 2023 01/08/2022, 12/22/2020, 05/01/2020, Additional history exists PHQ-2 (once per calendar year) 2024 INFLUENZA VACCINE (Season Ended) 2024 11/05/2022, 10/30/2021, 10/30/2021, Additional history exists PAP 06/19/2026 06/20/2023 DTAP/TDAP/TD VACCINE (4 - Td or Tdap) 01/02/2031 01/02/2021, 08/20/2009, 06/28/2001 ZOSTER VACCINE (1 of 2) 07/06/2031 HPV VACCINE Aged Out No longer eligi ble based on patient's age to complete this topic MENINGITIS VACCINE Aged Out No longer eligible based on patient's age to complete this topic PNEUMOCOCCAL VACCINE: PEDIATRICS (0 to 5 YEARS) AND AT-RISK PATIENTS (6 to 49 YEARS) Aged Out No longer eligible based on patient's age to complete this topic [facility] Care Teams Administrative Resident Relationship Specialty Start Date End Date Imelda Tripp PA-C [facility] [address] [place] [address] PCP - General Physician Veneer Layer 04/14/22
--- OUTSIDE RECORDS SUMMARY | 2024-08-11 11:02 | XMS_ITS | Clinical Summary ---
Author Organization [facility] Address [facility] [place] [address] Care Team Providers Care Automotive Production Worker Name Role Phone Imelda Tripp PA-C Primary Care Provider + [phone] Allergies Active Allergy Reactions Criticality Noted Date Comments Tree Nuts Anaphylaxis,Runny No se,Shortness Of Breath High 05/21/2022 Medications sertraline (ZOLOFT) 100 mg tablet Take 100 mg by mouth once daily. 01/28/2020 Active valACYclovir (VALTREX) 1 gram tablet TAKE 2 TABLETS BY MOUTH TWICE DAILY FOR 2 DAYS NEEDED 08/03/2019 Active Cetirizine (ZYRTEC) 10 mg cap Take by mouth. Active rosuvastatin (CRESTOR) 10 mg tabletIndicatio ns:Dyslipidemia ,Elevated coronary artery calcium score,Family history of heart disease Take 1 Tablet (10 mg) by mouth once daily. 90 Tablet 3 11/24/2023 Active ezetimibe 10 mg tabletIndicatio ns:Dyslipidemia ,Elevated coronary artery calcium score,Family history of heart disease Take 1 Tablet (10 mg) by mouth once daily. 90 Tablet 3 05/25/2024 Active Active Problems No known active problems Encounters Date Type Department Care Team Description 05/25/2024 1:00 PM CDT Telemedicine [place] [facility] [address] [place] [phone] Keren Banda, ABBY CV Preventive Cardiology Est 05/24/2024 Travel from Last 3 Months Social History Tobacco Use Types Packs/Day Years Used Date Smoking Tobacco: Never Smokeless Tobacco: Never Alcohol Use Standard Drinks/Week Comments Never 0 (1 standard drink = 0.6 oz pur e alcohol) Comments No Sex and Gender Information Value Date Recorded Sex Assigned at Not on file Legal Sex Female 7:42 AM INTERIOR WIRER Gender Identity Not on file Sexual Orientation Not on file Obstetrics History Last Filed Vital Signs Vital Sign Reading Time Taken Comments Blood Pressure 102/68 11/24/2023 3:11 PM CDT Pulse 83 11/24/2023 3:11 PM CDT Temperature 36.6 C (97.9 F) 07/23/2021 4:03 PM CDT Respiratory Rate 18 07/23/2021 8:05 PM CDT Oxygen Saturation 97% 11/24/2023 3:11 PM CDT Inhaled Oxygen Concentration - - Weight 82.1 kg (181 lb) 11/24/2023 3:11 PM CDT Height 162.6 cm (5' 4) 11/24/2023 3:11 PM CDT Body Mass Index 31.07 11/24/2023 3:11 PM CDT Plan of Treatment Upcoming Encounters Date Type Department Care Team (Late st Contact Info) Description 08/16/2024 9:30 AM CDT Telemedicine [facility] [address] [place] [phone] [address], [address] [place] [address] 08/27/2024 8:00 AM CDT Orders Only [facility] [address] [place] [address] Lab, [facility] Maintenance Due Date Last Done Comments Tdap 1992 Depression screening for age 12+ 1993 HIV for age 15-65 1996 Hepatitis C screening for ag e 18-79 07/06/1999 Hepatitis B series for 19+ ( 1 of 3 - 19+ 3-dose series) 2000 Pneumococcal series for age 6-49 (1 of 2 - PCV) 2000 Tetanus booster 2001 Influenza Vaccine (Season Ended) 2024 BMI (ht and wt on same day) for age 18+ 11/23/2024 11/24/2023 Pap test for age 21-65 06/19/2026 , 06/20/2023, 03/08/2018, Additional history exists COVID-19 vaccine series Completed 12/06/19, 01/08/2022, 05/01/2020 Procedures Procedure Name Priority Date/Time Associated Diagnosis Comments HPV HIGH RISK Routine 06/20/2023 1:30 PM CDT from Last 3 Months or Most Recently Relevant to Health Maintenance Results * HPV HIGH RISK (06/20/2023 1:30 PM CDT) TYPE 16 Negative Negative 06/22/2023 5:04 PM CDT [facility] TYPE 18 Negative Negative 06/22/2023 5:04 PM CDT [facility] TRA LABORATORY OTHER HIGH RISK TYPES Negative Negative 06/22/2023 5:04 PM CDT [facility] Other (Cervical) 06/20/2023 1:30 PM CDT 06/21/2023 10:09 AM CDT Narrative [facility] - 06/22/2023 5:04 PM CDT HPV types 16, 18, 31, 33, 35, 39, 45, 51, 52, 56, 58, 59, 66 and 68 DNA were undetectable or below the pre-set threshold. Methodology: Ariella Akilah 4800 HPV Test Imelda Tripp PA-C MICROBIOLOGY Final Result [facility] [address] [place] [address], from Last 3 Months or Most Recently Relevant to Health [place] [id number] [place] [id number] [employer] Care Teams Automotive Production Worker Relationship Specialty Start Date End Date Imelda Tripp PA-C [address] [place] [address] PCP - General Emergency Medicine 05/25/24
--- OUTSIDE RECORDS SUMMARY | 2024-08-11 11:02 | XMS_ITS | Data Portability ---
Author Organization [facility], Main Office Address [address] [place] [address] Assessment Encounter Date Assessment Date Assessment LastModified by Organization Details LastModified Time 11/16/2021 11/16/2021 1. Biopsy-proven basal carcinoma right upper mucosal and cutaneous lip violating the vermilion border. See photographs. Verbally and with written informed consent we discussed the high risk of swelling bleeding and bruising. Pain discomfort, overall 98% potential long-term efficacy and scarring. The potential need for a wedge resection pending the size was even discussed preoperatively. Area cleansed with alcohol. Vermilion border marked. Anesthetized with nerve block. 1% lidocaine with epinephrine however throughout the day Marcaine was used to maintain the anesthesia. Stage I: Curette debulking performed 1 to 1/2 mm margins were taken down to the muscularis revealing residual micronodular basal cell carcinoma and around the entire periphery. New paragraph we discussed this with the patient has been a more high risk basal cell. And the potential need for further layers over the day than expected. Stage II: Curette debulking performed 1 mm margins to 1-1/2 taken again. This revealed scattered smaller less dense less populated micronodular islands from 10:00 skipping most of 6 7 and 8:00, and beginning at about 6:00 to 2:00. Stage III: Peripheral rim taken from 11:00 to 1:00 through 6:00 with 1 to 2 mm margins revealing no residual basal carcinoma. Total stages 3, total sections 3 final defect 2.0 x 1.1 cm. Bilateral advancement flap and the formation of a wedge resection was performed. Advanced medially with tapering on the medial inner aspect of the mucosal lip to contour appropriate taper. Vermilion borders have been premarked and aligned with a mattress suture. Otherwise simple nylon sutures were used. The flap was 3 x 2 cm for total of 6 cm on the mucosal lip. Ice given, pressure dressing applied typewritten verbal wound care instructions given. Cell phone number given. Follow-up in 1 week in [place]. [email or web address] Not available 11/16/2021 16:28:14 Plan of Treatment Reminders Order Date Submit Date Provider Last Modified By Organization Details Last Modified Time Details Appointments None record ed. Lab None record ed. Referral None record ed. Procedures None record ed. Surgeries None record ed. Imaging None record ed. Medication Orders None record ed. Patient TargetsNo targets recorded. Patient InstructionsNo instructions recorded. Reason for Referral None Reported. Medical Equipment None Reported. Medications Name Sig Start Date Stop Date Status Note LastModified by Organization Details LastModified Time atorvastatin 10 mg tablet TAKE 1 TABLET BY MOUTH DAILY AT BEDTIME active Not Available Not Available No t Available sertraline 100 mg tablet TAKE 1 TABLET BY MOUTH EVERY DAY active Not Available Not Available No t Available ketorolac 10 mg tablet TAKE 1 TABLET BY MOUTH THREE TIMES A DAY NEEDED active Not Available Not Available No t Available amoxicillin 875 mg-potassium clavulanate 125 mg tablet TAKE 1 TABLET BY MOUTH TWICE A DAY FOR 10 DAYS FOR SINUS INFECTION active Not Available Not Available No t Available Vitals None Recorded Social History None recorded. Functional Status None recorded. Mental Status None recorded. Family History Nothing Reported. Medical History No medical history recorded. Gynecological HistoryNo gynecological history recorded. Obstetrics History GPAL:G 0 P 0 0 0 0 Past Encounters Encounter ID Performer Location Encounter Start Date Encounter Closed Date Diagnosis/Indication Diagnosis SNOMED-CT Code Diagnosis ICD10 Code Diagnosis Note [id number] Vj Harris MD Main Office [address] [address] 11/16/2021 10:24:22 11/16/2021 16:33:47 Basal cell carcinoma of upper lip [id number] C44.01 Health Concerns Section Related Observation LastModified by Organization Detai ls LastModified Time None Recorded Concern Status LastModified by Organization Details LastModified Time None Recorded Advance Directives Directive None Recorded Payers Insurance Date Sequence Insurance Name Policy Number Policy Resendiz Covered Member ID Resendiz Member ID Guarantor Name 11/16/2021 1 [facility] [id number] [id number] Katey Jayna Ernesto Notes Date Note Type Note Provider Name and Address Organization Details Recorded Time 11/16/2021 text/html 41 year-old fema diego presents for the basal cell on her right upper cutaneous lip accompanied by her . He presents for the preoperative consultation and the informed consent. But does not present for most of the procedure.. known to me from [place]. No changes in her history. Vj Harris MD [facility] [address] [place], [address], [facility] D[facility] 11/16/2021 16:33:43 OBGyn Episode No OBEpisode recorded.
--- OUTSIDE RECORDS SUMMARY | 2024-08-11 11:02 | XMS_ITS | Data Portability ---
Author Organization [facility] Derm [facility], Main Office Address [address] [place] [address] Assessment Encounter Date Assessment Date Assessment LastModified [...] number given. Follow-up in 1 week in [place]. [email or web address] Not available 11/16/2021 16:28:14 Plan of [...] SNOMED-CT Code Diagnosis ICD10 Code Diagnosis Note [id number] Vj Harris MD Main Office [address] [address] 11/16/2021 10:24:22 11/16/2021 16:33:47 Basal cell carcinoma of upper lip [id number] C44.01 Health Concerns Section Related Observation LastModified by Organization Detai ls LastModified Time None Recorded Concern Status LastModified by Organization Details LastModified Time None Recorded Advance Directives Directive None Recorded Payers Insurance Date Sequence Insurance Name Policy Number Policy Resendiz Covered Member ID Resendiz Member ID Guarantor Name 11/16/2021 1 [facility] [id number] [id number] Katey Jayna Ernesto Notes Date Note Type Note Provider Name and Address Organization Details Recorded Time 11/16/2021 text/html 41 year-old fema diego presents for the basal cell on her right upper cutaneous lip accompanied by her . He presents for the preoperative consultation and the informed consent. But does not present for most of the procedure.. known to me from [place]. No changes in her history. Vj Harris MD [facility] [address] [place], [address], [facility] Derm[facility] 11/16/2021 16:33:43 OBGyn Episode No OBEpisode recorded.
[2024-08-11 11:07] VITALS: BP 128/89; PULSE 85; RESP 18; TEMP 36.6; O2SAT 98; BMI 31.1
--- NOTE | 2024-08-11 12:30 | ED.NAVMDI ---
HPI - Nausea/Vomiting/Diarrhea General Chief complaint: Nausea/Vomiting Stated complaint: nausea, vomiting Time Seen by Provider: 08/11/24 11:51 History of Present Illness HPI Narrative: This 44-year-old female comes in reporting nausea and vomiting for the past 2 days. She also has associated upper epigastric abdominal pain. She states that she has been healthy prior to this. She does not report any fevers or diarrhea. Related Data Home Medications ?Medication ?Instructions ?Recorded ?Confirmed cetirizine 10 mg capsule (Zyrtec) 10 mg PO QDAY PRN 10/13/21 08/06/24 diphenhydramine HCl 25 mg tablet 50 mg PO DAILY PRN 12/20/22 08/06/24 (Benadryl Allergy) famotidine 40 mg tablet 40 mg PO QDAY PRN 12/20/22 08/06/24 meloxicam 7.5 mg tablet 7.5 mg PO QDAY PRN 05/02/24 08/06/24 rosuvastatin 10 mg tablet 10 mg PO DAILY 05/02/24 08/06/24 ezetimibe 10 mg tablet 10 mg PO DAILY 06/26/24 08/06/24 mupirocin 2 % topical ointment 1 applic topical BID PRN 06/26/24 08/06/24 niacinamide 35 mg/2 mL oral drops mg PO 08/06/24 08/06/24 (PureVita Vitamin B3) Previous Rx's ?Medication ?Instructions ?Recorded meclizine 25 mg tablet 25 mg PO TID PRN vertigo #30 tabs 05/02/24 albuterol sulfate 90 mcg/actuation 2 puff inhalation Q4-6H PRN 08/06/24 aerosol inhaler shortness of breath or wheezing #6.7 grams epinephrine 0.3 mg/0.3 mL 0.3 mg (0.3 mL) IM Q5-15M PRN 08/06/24 injection, auto-injector (EpiPen anaphylaxis #2 ea 2-Doug) sertraline 100 mg tablet 100 mg PO QDAY #90 tabs 08/06/24 ondansetron HCl 4 mg tablet 4 mg PO Q6H #15 tabs 08/11/24 Allergies Allergy/AdvReac Type Severity Reaction Status Date / Time tree nut Allergy Severe Anaphylaxis Verified 08/06/24 13:00 house dust Allergy Verified 08/06/24 13:00 lactose AdvReac Intermediate Verified 08/06/24 13:00 Molds & Smuts Allergy Mild Congested Uncoded 08/06/24 13:00 Review of Systems Status of ROS: Reports: 10 or more systems reviewed and unremarkable except as noted in History and below Narrative: Constitutional: No fevers, no weight gain or loss. Eyes: No discharge. No vision changes. HENT: No congestion, no sore throat, no ear pain. Cardiovascular: No chest pain, no palpitations. Respiratory: No shortness of breath, no wheezes, no cough. Gastrointestinal: Upper epigastric abdominal pain with persistent nausea and vomiting. Genitourinary: No dysuria, no hematuria. Musculoskeletal: Normal range of motion. Skin: No rashes, no pruritis. Neurological: No dizziness, weakness, sensory change, speech change. Endo/Heme/Allergies: No bruising or bleeding. No polydipsia. Pysch: no suicidality, no anxiety, no insomnia. All other systems reviewed and are negative. [facility] Medical History (Updated 08/11/24 @ 13:43 by Dudley Warner MD) Allergic reaction ?T78.40XA - Allergy, unspecified, initial encounter (ICD-10) Restless legs ?G25.81 - Restless legs syndrome (ICD-10) Carpal tunnel syndrome of right wrist ?G56.01 - Carpal tunnel syndrome, right upper limb (ICD-10) Acne (12/11/08) ?L70.9 - Acne, unspecified (ICD-10) Basal cell carcinoma (~10/2021) ?C44.91 - Basal cell carcinoma of skin, unspecified (ICD-10) History of bulimia ?Z86.59 - Personal history of other mental and behavioral disorders (ICD-10) Benign paroxysmal positional vertigo ?H81.10 - Benign paroxysmal vertigo, unspecified ear (ICD-10) Surgical History History of section (06/17/09) ?Z98.891 - History of uterine scar from previous surgery (ICD-10) History of hysteroscopy (09/20/11) ?Z98.890 - Other specified postprocedural states (ICD-10) History of hysteroscopy (01/08/15) ?Z98.890 - Other specified postprocedural states (ICD-10) Hx of nasal septoplasty (09/07/19) ?Z98.890 - Other specified postprocedural states (ICD-10) History of endometrial ablation (05/02/18) ?Z98.890 - Other specified postprocedural states (ICD-10) History of sinus surgery (12/11/08) ?Z98.890 - Other specified postprocedural states (ICD-10) History of section (10/24/12) ?Z98.891 - History of uterine scar from previous surgery (ICD-10) History of arthroscopic knee surgery (12/11/08) ?Z98.890 - Other specified postprocedural states (ICD-10) Family History (Updated 08/06/24 @ 15:01 by Vesta Mondragon ~ [employer]) Father Alcoholism Heart disease Hyperlipidemia High blood pressure Colon polyps Colon cancer Maternal Grandmother Ovarian cancer Mother High blood pressure Paternal Grandmother Ovarian cancer Social History (Updated 08/06/24 @ 15:02 by Vesta Mondragon ~ [facility]) 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 Education: Masters degree , 2 sons ( 15 yo, 11 yo) never smoker No alcohol use No recreational drugs Exercise: 6-7 days per week What is your current living situation?: I presently have a place to live Problems where you live: no known problems In the past 12 months, utilities in danger of being shut off: no In past 12 months, lack of transportation kept you from medical appts, meetings, work, or getting things needed for daily living: no In the past 12 mos, have been you worried that your food would run out before you had money to buy more?: never true In the past 12 mos, the food you bought just didn't last and you didn't have money to buy more?: never true Highest level of school completed/degree received: Master's degree Smoking Status: Never smoker How often do you have a drink containing alcohol: never AUDIT-C Alcohol total score: 0 Non-prescribed substance use: denies use Caffeine: Yes Are you now , , , , never or living with a partner: Social isolation score (0-1 are the most socially isolated patients): 1 How often does anyone, including family, friends and others, physically hurt you: never How often does anyone, including family, friends and others, insult or talk down to you: never How often does anyone, including family, friends and others, threaten you with harm: never How often does anyone, including family, friends and others, scream or curse at you: never Do you think of yourself as: straight/heterosexual Gender Identity: female Are you currently sexually active: Yes In the past 12 months, how many sex partners have you had: one Are you using contraception or practicing any form of control: Yes (Partner vasectomy) Exam Narrative: Exam Narrative: Constitutional: Well-developed, well-nourished, no acute distress. HEENT: Normocephalic, atraumatic. Neck: Normal range of motion. Nontender. Supple. Heart: Regular. No murmurs. Normal rate. Intact distal pulses. Lungs: Clear to auscultation. No chest discomfort. No wheezes, rhonchi, or rales. Abdomen: Normal bowel sounds. Diffuse upper epigastric tenderness. No rebound tenderness. Genitalia: Deferred. Back: No midline tenderness. Normal range of motion. Extremities: Normal range of motion. No injury. Skin: Intact. No rash. Warm. No erythema or pallor. Neurologic: No altered sensation. No weakness. Alert and oriented. Psychiatric: No suicidality. No anxiety or depression. No insomnia. Nursing notes and vitals signs are reviewed. Const: Vital Signs, click to edit/add: Vital Signs - 24 hr 08/11/24 11:07 08/11/24 13:23 Temperature 97.8 F 97.1 F L Pulse Rate [Pulse Oximeter] 85 62 Respiratory Rate 18 18 Blood Pressure [Ri ght Upper Arm] 128/89 106/79 Pulse Oximetry 98 99 Oxygen Delivery Me thod Room Air Room Air Course Vital Signs Vital signs: Initial Vital Signs Temperature 97.8 F 08/11/24 11:07 Temperature Source Temporal Artery Scan 08/11/24 11:07 Pulse Rate 85 08/11/24 11:07 Respiratory Rate 18 08/11/24 11:07 Blood Pressure 128/89 08/11/24 11:07 Blood Pressure Mean 102 08/11/24 11:07 Pulse Oximetry 98 08/11/24 11:07 Oxygen Delivery Method Room Air 08/11/24 11:07 Vital Signs Temperature 97.8 F 08/11/24 11:07 Pulse Rate 85 08/11/24 11:07 Respiratory Rate 18 08/11/24 11:07 Blood Pressure 128/89 08/11/24 11:07 Pulse Oximetry 98 08/11/24 11:07 Oxygen Delivery Method Room Air 08/11/24 11:07 Temperature 97.1 F L 08/11/24 13:23 Pulse Rate 62 08/11/24 13:23 Respiratory Rate 18 08/11/24 13:23 Blood Pressure 106/79 08/11/24 13:23 Pulse Oximetry 99 08/11/24 13:23 Oxygen Delivery Method Room Air 08/11/24 13:23 Medications Administered Medications: Discontinued Medications Generic Name Dose Route Start Last Admin Trade Name Freq PRN Reason Stop Dose Admin Sodium Chloride 1,000 mls @ 1,000 mls/hr 08/11/24 12:15 08/11/24 13:21 0.9 % Sodium Chloride 1000 Ml IV 08/11/24 13:14 Infused .Q1H CELSO Infusion Ketorolac Tromethamine 15 mg 08/11/24 13:08 08/11/24 13:15 Ketorolac 15 Mg/Ml Inj IVP 08/11/24 13:09 15 mg ONCE ONE Administration Ondansetron HCl 4 mg 08/11/24 12:10 08/11/24 12:44 Ondansetron 2 Mg/Ml Inj IVP 08/11/24 12:11 4 mg ONCE ONE Administration MDM - Nausea/Vomiting/Diarrhea MDM Narrative Medical decision making narrative: This patient comes in reporting persistent nausea with vomiting over the past couple days. She arrives here with normal vital signs. An IV was established where she did receive a L of normal saline and 4 mg of Zofran. This brought significant relief to her symptoms. Lab results also returned with normal findings. I did use bedside ultrasound also to look at her gallbladder with normal appearing findings there also. She is okay to be discharged home and received a prescription for Zofran. Lab Data Labs: Lab Results 08/11/24 Range/Units 12:31 WBC 4.78 (4.50-11.00) K/uL RBC 4.60 (4.00-5.20) m/uL Hgb 14.0 (12.0-16.0) gm/dL Hct 41.8 (33.0-51.0) % MCV 91 (80-100) fL MCH 30 (26-34) pg MCHC 34 (32-36) gm/dL RDW Coeff of Archie 12.1 (11.5-15.5) % Plt Count 239 (140-440) K/uL Neut % (Auto) 46.2 (42.0-72.0) % Lymph % (Auto) 36.0 (20-44) % [place] % (Auto) 13.2 H (0.0-11.0) % Eos % (Auto) 4.2 (0.0-7.0) % Baso % (Auto) 0.4 (0.0-3.0) % Neut # (Auto) 2.21 (1.7-7.0) K/uL Lymph # (Auto) 1.72 (0.90-2.90) K/uL [place] # (Auto) 0.60 (0.00-0.90) K/UL Eos # (Auto) 0.20 (0.00-0.50) K/uL Baso # (Auto) 0.02 (0.00-0.30) K/uL Abs Immat Gran (auto) 0.00 (0.00-0.30) K/uL Imm/Tot Granulo (auto) 0.0 % Sodium 139 (135-149) mmol/L Potassium 4.0 (3.6-5.1) mmol/L Chloride 104 (96-114) mmol/L Carbon Dioxide 28 (20-32) mmol/L Anion Gap 7 (7-15) mEq/L BUN 15 (5-24) mg/dL Creatinine 0.7 (0.5-1.5) mg/dL Estimated Creat Clear 89.48 Estimated GFR 110 ml/min Glucose 95 (60-115) mg/dL Calcium 9.0 (8.4-10.6) mg/dL Total Bilirubin 0.4 (0.1-1.5) mg/dL Direct Bilirubin 0.1 (0.0-0.5) mg/dL AST 40 H (12-35) U/L ALT 32 (4-35) U/L Alkaline Phosphatase 51 (40-150) U/L C-Reactive Protein 0.9 (0.5-1.0) mg/dL Total Protein 7.2 (6.0-8.3) g/dL Albumin 4.2 (3.3-5.0) g/dL Lipase 57 (23-300) U/L Discharge Plan Discharge Clinical Impression: Gastroenteritis Patient Disposition: Home, Self-Care Condition: Improved Additional Instructions: Take medication as needed and directed. Increase diet as tolerated. Follow up with MD return if worsening. Prescriptions: New ondansetron HCl 4 mg tablet 4 mg PO Q6H Qty: 15 0RF No Action PureVita Vitamin B3 35 mg/2 mL drops PO sertraline 100 mg tablet 100 mg PO QDAY Qty: 90 3RF albuterol sulfate 90 mcg/actuation HFA aerosol inhaler 2 puff inhalation Q4-6H PRN (Reason: shortness of breath or wheezing) Qty: 6.7 0RF epinephrine [EpiPen 2-Doug] 0.3 mg/0.3 mL auto-injector 0.3 mg IM Q5-15M PRN (Reason: anaphylaxis) Qty: 2 5RF Rx Instructions: do not exceed 3 doses per episode Zyrtec 10 mg capsule 10 mg PO QDAY PRN famotidine 40 mg tablet 40 mg PO QDAY PRN Rx Instructions: use after epi-pen diphenhydramine HCl [Benadryl Allergy] 25 mg tablet 50 mg PO DAILY PRN Rx Instructions: after epi-pen rosuvastatin 10 mg tablet 10 mg PO DAILY meloxicam 7.5 mg tablet 7.5 mg PO QDAY PRN Patient Comments: TAKE 1 TABLET DAILY WITH FOOD. DO NOT UTILIZE WITH ANY OTHER ANTINFLAMMATORY MEDICATION SUCH NAPROXEN, ADVIL, CELEBREX, ETC. IF NOT ADEQUATE PAIN RELIEF MAY INCREASE TO ONE EVERY 12 HOURS.* meclizine 25 mg tablet 25 mg PO TID PRN (Reason: vertigo ) Qty: 30 0RF Rx Instructions: one tablet 3 x daily as needed for vertigo mupirocin 2 % ointment 1 applic topical BID PRN Rx Instructions: apply twice daily to wound ezetimibe 10 mg tablet 10 mg PO DAILY Follow Up/Referrals: Imelda Tripp PA-C [Primary Care Provider, Family Practice] Stand Alone Forms: [facility] Info Instructions Procedures Ultrasound Biliary exam #1: Anatomical areas examined: gallbladder, long and short axis Indications: RUQ/epigastric pain Exam type: limited abdominal ultrasound; RUQ Impression: normal exam Description/Findings: Normal appearing kidney, liver, and gallbladder.
[2024-08-11 12:38] LABS: Basophils Absolute Auto 0.02 K/uL (0.00-0.30); Basophils Percent Auto 0.4 % (0.0-3.0); Eosinophils Percent Auto 4.2 % (0.0-7.0); Hematocrit 41.8 % (33.0-51.0); Lymphocytes Absolute Auto 1.72 K/uL (0.90-2.90); Mean Corpuscular HGB Conc 34 gm/dL (32-36); Mean Corpuscular Hemoglobin 30 pg (26-34); Mean Corpuscular Volume 91 fL (80-100); Monocytes Percent Auto 13.2 % (0.0-11.0); Neutrophils Absolute Auto 2.21 K/uL (1.7-7.0); Neutrophils Percent Auto 46.2 % (42.0-72.0); Platelet Count* 239 K/uL (140-440); RDW Coefficient of Variation % 12.1 % (11.5-15.5); Slide Review Reflex No; White Blood Count* 4.78 K/uL (4.50-11.00)
[2024-08-11] MEDS: ONDANSETRON 2 MG/ML inj 4 MG IVP (12:44)
[2024-08-11] MEDS: 0.9 % SODIUM CHLORIDE 1000 ml 1,000 ML IV (12:44)
[2024-08-11 12:48] LABS: Albumin* 4.2 g/dL (3.3-5.0); Chloride* 104 mmol/L (96-114); Sodium* 139 mmol/L (135-149)
[2024-08-11 12:51] LABS: Alanine Aminotransferase* 32 U/L (4-35); Alkaline Phosphatase* 51 U/L (40-150); Anion Gap 7 mEq/L (7-15); Aspartate Amino Transferase* 40 U/L (12-35); Bilirubin Direct* 0.1 mg/dL (0.0-0.5); Bilirubin Total* 0.4 mg/dL (0.1-1.5); Blood Urea Nitrogen* 15 mg/dL (5-24); Carbon Dioxide* 28 mmol/L (20-32); Creatinine* 0.7 mg/dL (0.5-1.5); Est. Creatinine Clearance* 89.48; Estimated Glomerular Filt Rate 110 ml/min; Lipase* 57 U/L (23-300); Total Protein* 7.2 g/dL (6.0-8.3)
[2024-08-11 12:52] LABS: Glucose* 95 mg/dL (60-115)
[2024-08-11 12:54] LABS: C Reactive Protein* 0.9 mg/dL (0.5-1.0)
[2024-08-11] MEDS: KETOROLAC 15 MG/ML inj IVP (13:15)
[2024-08-11 13:23] VITALS: BP 106/79; PULSE 62; RESP 18; TEMP 36.2; O2SAT 99
== END 2024-08-11 13:53 | disposition home or self-care (01) ==
PROVIDERS: Emergency Provider Emergency Medicine Emergency Medical Services; PCP Physician Assistant Medical
DX: K52.9 Noninfective gastroenteritis and colitis, unspecified (principal)
CPT/HCPCS: 36415; 80048; 80076; 83690; 85025; 86140; 96374; 96375; 99283; 99284; J1885; J2405; J7030

== ENCOUNTER 2024-10-16 18:22 | Outpatient (CLI) | payer OTHER, SELFPAY ==
--- NOTE | 2024-10-16 18:40 | CRLHL7_ITS ---
For Patients: As a result of the Century Cures Act, medical imaging exams and procedure reports are released immediately into your electronic medical record. You may view this report before your referring provider. If you have questions, please contact your health care provider. INDICATION: BILATERAL SCREENING MAMMOGRAM, ASYMPTOMATIC 44 Y/O FEMALE COMPARISON: 04/07/2022, 09/28/2023 TECHNIQUE: Digital mammogram in CC and MLO projections including computer-aided detection (CAD) and tomosynthesis. BREAST COMPOSITION: There are scattered areas of fibroglandular density. FINDINGS: No suspicious findings. ASSESSMENT: BI-RADS 1 Negative RECOMMENDATION: Annual screening mammogram. A lay language report of this examination will be provided to the patient. Dictated by: Lyric Sauceda MD @ 10/17/2024 11:14:05 (Electronically Signed)
== END 2024-10-16 18:23 | disposition home or self-care (01) ==
LOC: MAMMO 18:22
PROVIDERS: PCP Physician Assistant Medical; Visit Provider Physician Assistant Medical
DX: Z12.31 Encounter for screening mammogram for malignant neoplasm of breast (principal)
CPT/HCPCS: 77063; 77067

== ENCOUNTER 2025-01-21 18:22 | Outpatient (CLI) | payer OTHER, SELFPAY ==
--- NOTE | 2025-01-21 18:15 | CRLHL7_ITS ---
For Patients: As a result of the Century Cures Act, medical imaging exams and procedure reports are released immediately into your electronic medical record. You may view this report before your referring provider. If you have questions, please contact your health care provider. Indication: Migraine Technique: Noncontrast sagittal T1 weighted, axial FLAIR, axial T2 weighted, and axial diffusion weighted sequences are provided. Comparison: CT head 10/25/2013 Findings: The ventricles, sulci and gyri are normal size, shape and contour for age. The midline structures are centrally located with no evidence of shift. A punctate focus of T2 prolongation in the right frontal lobe subcortical white matter is nonspecific. A punctate focus of susceptibility artifact in the right jessi adele does not demonstrate signal abnormality on other sequences. There are no suspicious intra or extra-axial fluid collections. No region of restricted diffusion. Expected flow voids in the cavernous carotids and basilar artery. The pituitary gland, optic chiasm, pineal gland, and cerebellar tonsils are unremarkable. Mild fluid in the left mastoid air cells. Impression: 1. No acute intracranial abnormalities. 2. Small focus of T2 prolongation in the right frontal lobe subcortical white matter is nonspecific. Differential considerations include sequela of migraine headaches, prior inflammation, and chronic small vessel disease. 3. A punctate focus of susceptibility artifact in the right jessi adele does not demonstrate signal abnormality on other sequences and could represent remote microhemorrhage or dystrophic calcification. Dictated by Milse Cuenca MD @ 01/21/2025 8:03:23 PM (Electronically Signed)
== END 2025-01-21 18:23 | disposition home or self-care (01) ==
LOC: MRI 18:23
PROVIDERS: PCP Physician Assistant Medical; Visit Provider Physician Assistant Medical
DX: G43.909 Migraine, unspecified, not intractable, without status migrainosus (principal)
CPT/HCPCS: 70551